=== PATIENT | female | born 1990 | race Caucasian/White ===

== ENCOUNTER 2019-07-06 09:45 | Inpatient (IN) | payer MEDICAID ==
[~2019-07-06] VITALS: Ht 170.2 cm; Wt 73.0 kg
[2019-07-06] MEDS ORDERED: METHYLERGONOVINE 0.2 MG/ML AMP IM PRN (11:05)
[2019-07-06] MEDS ORDERED: PROMETHAZINE 25 MG/ML VIAL IVP PRN (11:05)
[2019-07-06] MEDS ORDERED: NALBUPHINE 10 MG/ML AMP IVP PRN (11:05)
[2019-07-06] MEDS ORDERED: CARBOPROST 250 MCG/ML AMP IM PRN (11:05)
[2019-07-06] MEDS ORDERED: MISOPROSTOL 25 MCG TAB VG SCH (11:10)
[2019-07-06] MEDS ORDERED: MISOPROSTOL 25 MCG TAB ONE (12:27)
[2019-07-06] MEDS ORDERED: AMPICILLIN 1,000 MG VIAL ONE (12:31)
[2019-07-06 13:09] LABS: BASOPHILS # (AUTO) 0.1 K/uL (0.00-0.22); EOSINOPHILS % (AUTO) 0.4 % (0.0-4.0); HEMATOCRIT 36.7 % (36-48); HEMOGLOBIN 12.9 g/dL (12.0-16.0); LYMPHOCYTES # (AUTO) 1.8 K/uL (2.5-16.5); MEAN CORPUSCULAR HEMOGLOBIN 31 pg (27-31); MEAN CORPUSCULAR HGB CONC 35 g/dL (33-37); MEAN CORPUSCULAR VOLUME 89.5 fL (80-94); MONOCYTES # (AUTO) 0.3 K/uL (0.8-1.0); MONOCYTES % (AUTO) 4.3 % (1.7-9.3); NEUTROPHILS # (AUTO) 4.5 K/uL (1.8-7.7); NEUTROPHILS % (AUTO) 67.3 % (42.2-75.2); PLATELET COUNT (AUTO) 177 K/uL (140-450); RED BLOOD CELL COUNT(AUTO) 4.11 MIL/uL (4.20-5.40); RED CELL DISTRIBUTION WIDTH 17.9 % (11.6-13.7); WHITE BLOOD COUNT (AUTO) 6.7 K/uL (4.8-10.8)
[2019-07-06 13:29] LABS: APPEARANCE,URINE CLEAR (CLEAR); BILIRUBIN,URINE NEGATIVE (NEGATIVE); BLOOD, URINE NEGATIVE (NEGATIVE); COLOR,URINE ORANGE (YELLOW); LEUKOCYTE ESTERASE ,URINE NEGATIVE (NEGATIVE); NITRITE, URINE NEGATIVE (NEGATIVE); UGLUCOSE NEGATIVE (NEGATIVE)
[2019-07-06 13:36] LABS: ALBUMIN 3.1 g/dL (3.4-5.0); ANION GAP 17.2 (8-16); CREATININE 0.6 mg/dL (0.6-1.3); POTASSIUM 4.2 mmol/L (3.5-5.1)
[2019-07-06 13:41] LABS: RBC,URINE NONE SEEN /HPF (0-5); WBC,URINE NONE SEEN /HPF (0-5)
[2019-07-06 14:25] LABS: PROTHROMBIN TIME 9.3 secs (10.8-13.4)
[2019-07-06] MEDS ORDERED: NALBUPHINE 10 MG/ML AMP ONE (14:58)
[2019-07-06] MEDS ORDERED: PROMETHAZINE 25 MG/ML VIAL ONE (14:58)
[2019-07-06] MEDS ORDERED: MAG SULF 20 GM/H2O PREMIX DRIP 500 ML IV SCH (17:05)
[2019-07-06] MEDS ORDERED: MAG SULF 2000 MG/WATER PREMIX 100 ML IV SCH (17:30)
[2019-07-06] MEDS ORDERED: ROPIVACAINE 0.2%/NS PREMIX 100 ML EPI ONE (17:35)
[2019-07-06] MEDS ORDERED: hydrALAZINE 20 MG/ML VIAL IVP SCH (18:05)
[2019-07-06] MEDS ORDERED: hydrALAZINE 20 MG/ML VIAL ONE (18:16)
[2019-07-06] MEDS ORDERED: MAG SULF 20 GM/H2O PREMIX DRIP 500 ML IV ONE (18:20)
[2019-07-06] MEDS: LACTATED RINGERS 1,000 ML IV SCH ×2 (18:27→20:50)
[2019-07-07] MEDS ORDERED: OXYTOCIN 20 UNITS in LACTATED RINGERS 1,000 ML IV SCH ×5 (01:30→18:42)
[2019-07-07] MEDS ORDERED: OXYTOCIN 20 UNITS/LR PREMIX 1,000 ML IV ONE ×2 (01:51→18:41)
[2019-07-07] MEDS ORDERED: MAG SULF 20 GM/H2O PREMIX DRIP 500 ML IV ONE ×2 (04:17→20:01)
[2019-07-07] MEDS ORDERED: ROPIVACAINE 0.2%/NS PREMIX 100 ML EPI ONE ×2 (05:27→14:03)
[2019-07-07 07:45] VITALS: BP 156/98
--- NOTE | 2019-07-07 07:57 | NUR ---
PATIENT HAS BEEN SCREENED AND CATEGORIZED LOW NUTRITION RISK. PATIENT WILL BE SEEN WITHIN 7 DAYS OF ADMISSION. 07/12/[address]
[2019-07-07 08:30] VITALS: BP 141/98
[2019-07-07] MEDS ORDERED: hydrALAZINE 20 MG/ML VIAL ONE (12:50)
[2019-07-07 12:57] VITALS: BP 167/104
[2019-07-07] MEDS ORDERED: hydrALAZINE 20 MG/ML VIAL IVP SCH (13:00)
[2019-07-07] MEDS: LACTATED RINGERS 1,000 ML IV SCH (14:32)
[2019-07-07] MEDS ORDERED: BUPRENORPHINE 0.3 MG/ML VIAL IV PRN (17:05)
[2019-07-07] MEDS ORDERED: MAGNESIUM CITRATE 300 ML BTL PO SCH (17:05)
[2019-07-07] MEDS ORDERED: MEASLES, MUMPS, AND RUBELLA 1 VIAL SQVAC PRN (17:05)
[2019-07-07] MEDS ORDERED: OXYTOCIN 10 UNITS in LACTATED RINGERS 1,000 ML IV SCH (17:05)
[2019-07-07] MEDS ORDERED: oxyCODONE/APAP 5/325 MG 1 TAB TAB PO PRN (17:05)
[2019-07-07] MEDS ORDERED: MAG SULF 20 GM/H2O PREMIX DRIP 500 ML IV SCH (17:05)
[2019-07-07] MEDS ORDERED: KETOROLAC 30 MG/ML VIAL IVP PRN (17:05)
[2019-07-07] MEDS ORDERED: TEMAZEPAM 15 MG CAP PO PRN (17:05)
[2019-07-07] MEDS ORDERED: BUPIVACAINE-MPF 0.75% 10 ML VIAL INJ ONE (18:00)
[2019-07-07] MEDS ORDERED: MORPHINE PRES FREE 10 MG/10 ML AMP IV ONE (18:06)
[2019-07-07] MEDS ORDERED: MIDAZOLAM 2 MG/2 ML VIAL ONE (18:06)
[2019-07-07] MEDS ORDERED: ceFAZolin 1,000 MG VIAL IVP ONE (18:15)
[2019-07-07] MEDS ORDERED: ONDANSETRON 4 MG/2 ML VIAL ONE (18:41)
[2019-07-07] MEDS ORDERED: MEPERIDINE 25 MG/ML SYR IVP PRN (18:45)
[2019-07-07] MEDS ORDERED: ONDANSETRON 4 MG/2 ML VIAL IVP PRN ×2 (18:45)
[2019-07-07] MEDS ORDERED: HYDROmorphone 1 MG/ML AMP IVP PRN (18:45)
[2019-07-07] MEDS ORDERED: NALBUPHINE 10 MG/ML AMP IVP PRN (18:45)
[2019-07-07] MEDS ORDERED: NALOXONE 0.4 MG/ML VIAL IVP PRN ×3 (18:45)
[2019-07-07] MEDS ORDERED: diphenhydrAMINE 50 MG/ML VIAL IVP PRN ×2 (18:45)
[2019-07-08] MEDS ORDERED: diphenhydrAMINE 50 MG/ML VIAL ONE ×2 (00:21→00:24)
[2019-07-08] MEDS ORDERED: ceFAZolin 1,000 MG VIAL ONE (02:38)
[2019-07-08 05:34] LABS: HEMATOCRIT 30.5 % (36-48); HEMOGLOBIN 10.7 g/dL (12.0-16.0); MEAN CORPUSCULAR HEMOGLOBIN 31 pg (27-31); MEAN CORPUSCULAR HGB CONC 35 g/dL (33-37); MEAN CORPUSCULAR VOLUME 89.3 fL (80-94); PLATELET COUNT (AUTO) 131 K/uL (140-450); RED BLOOD CELL COUNT(AUTO) 3.42 MIL/uL (4.20-5.40); RED CELL DISTRIBUTION WIDTH 17.5 % (11.6-13.7)
[2019-07-08 07:28] LABS: LYMPHOCYTES % (MANUAL) 5 % (20-46)
[2019-07-08 07:29] LABS: MONOCYTES % (MANUAL) 4 % (5-12)
[2019-07-08] MEDS ORDERED: BLOOD GLUCOSE MONITORING 1 DEV DEV FS SCH (07:30)
[2019-07-08] MEDS ORDERED: metFORMIN 500 MG TAB PO SCH (08:00)
[2019-07-08] MEDS: SODIUM PHOSPHATE 118 ML ENEM RC SCH (09:00)
[2019-07-08] MEDS: BISACODYL 5 MG TABEC PO SCH ×2 (09:00→22:13)
[2019-07-08] MEDS: CALCIUM POLYCARBOPHIL 625 MG TAB PO SCH ×4 (09:00→22:14)
[2019-07-08] MEDS ORDERED: OXYTOCIN 20 UNITS in LACTATED RINGERS 1,000 ML IV SCH (09:10)
[2019-07-08] MEDS: KETOROLAC 30 MG/ML VIAL IM/IVP SCH ×2 (11:06→17:58)
[2019-07-08] MEDS: SIMETHICONE 80 MG TAB.CHEW PO PRN (17:57)
[2019-07-08] MEDS ORDERED: OXYTOCIN 20 UNITS/LR PREMIX 1,000 ML IV ONE (20:09)
[2019-07-08] MEDS: DOCUSATE SOD/SENNA 50/8.6 MG 1 TAB PO SCH (22:14)
[2019-07-08] MEDS: SENNA 8.6 MG TAB PO SCH (22:15)
[2019-07-08] MEDS ORDERED: LABETALOL 200 MG TAB ONE (23:04)
[2019-07-08] MEDS: LABETALOL 200 MG TAB PO SCH (23:05)
[2019-07-09] MEDS: HYDROcodone/APAP 5/325 MG 1 TAB TAB PO PRN ×3 (05:23→17:01)
[2019-07-09] MEDS: BISACODYL 5 MG TABEC PO SCH ×2 (08:44→21:28)
[2019-07-09] MEDS: CALCIUM POLYCARBOPHIL 625 MG TAB PO SCH ×4 (08:44→21:29)
[2019-07-09] MEDS: SIMETHICONE 80 MG TAB.CHEW PO PRN ×2 (08:44→17:01)
[2019-07-09] MEDS: IBUPROFEN 800 MG TAB PO PRN ×2 (08:44→14:35)
[2019-07-09] MEDS: LABETALOL 200 MG TAB PO SCH ×2 (08:45→21:23)
[2019-07-09] MEDS: SODIUM PHOSPHATE 118 ML ENEM RC SCH (10:20)
[2019-07-09] MEDS: SENNA 8.6 MG TAB PO SCH (21:25)
[2019-07-09] MEDS: DOCUSATE SOD/SENNA 50/8.6 MG 1 TAB PO SCH (21:27)
[2019-07-10] MEDS: HYDROcodone/APAP 5/325 MG 1 TAB TAB PO PRN ×3 (01:10→11:59)
[2019-07-10] MEDS: LABETALOL 200 MG TAB PO SCH (08:16)
[2019-07-10] MEDS: SIMETHICONE 80 MG TAB.CHEW PO PRN (08:17)
[2019-07-10] MEDS: BISACODYL 5 MG TABEC PO SCH (09:00)
[2019-07-10] MEDS: CALCIUM POLYCARBOPHIL 625 MG TAB PO SCH ×2 (09:00→11:54)
== END 2019-07-10 14:20 | disposition home or self-care (01) | DRG 540 ==
LOC: MLD 09:45 → OBSVTOIN 11:42 → MLD 11:45 → MFCC 07-09 01:20
PROVIDERS: ADMIT Obstetrics & Gynecology; ATTEND Obstetrics & Gynecology
PROC: 3E0134Z Introduction of Serum, Toxoid and Vaccine into Subcutaneous Tissue, Percutaneous Approach (ICD-10-PCS; 2019-07-07)
PROC: 10D00Z1 Extraction of Products of Conception, Low, Open Approach (ICD-10-PCS; principal; 2019-07-07 17:30)
PROC: 3E0234Z Introduction of Serum, Toxoid and Vaccine into Muscle, Percutaneous Approach (ICD-10-PCS; 2019-07-10)
DX: O14.14 Severe pre-eclampsia complicating childbirth (principal); I16.9 Hypertensive crisis, unspecified; O69.81X0 Labor and delivery complicated by cord around neck, without compression, not applicable or unspecified; O62.0 Primary inadequate contractions; Z37.0 Single live birth; Z3A.38 38 weeks gestation of pregnancy; Z23 Encounter for immunization
CPT/HCPCS: G0378 ×2; 36415; 80053; 81001; 82948; 83735; 85025; 85384; 85610; 85730; 86592; 86886; 86900; 86901; 90715; J0290; J0360; J0690; J1200; J1885; J2250; J2270; J2300; J2405; J2550; J2590; J2795; J3475; J3490; J7060; J7120

== ENCOUNTER 2022-09-19 14:43 | Emergency (ER) | payer MEDICAID ==
[~2022-09-19] VITALS: Ht 170.2 cm; Wt 70.5 kg
[2022-09-19 14:56] VITALS: BP 153/92
--- NOTE | 2022-09-19 15:03 | NUR ---
PT AMB TO BED 10.
--- NOTE | 2022-09-19 15:04 | NUR ---
32/F C/O DIZZINESS AND HEADACHE ACCOMPANIED BY NAUSEA X 1 WK. TACHY OF 137 AT TRIAGE. AAO4, AMBULATORY, VITALS STABLE, ON ROOM AIR. ON MONITOR, ON GOWN. PMH: DM
--- NOTE | 2022-09-19 15:25 | NUR ---
IV ESTABLISHED TO LEFT AC WITH 20G. BLOOD DRAWN, URINE COLLECTED.
[2022-09-19 15:58] LABS: BASOPHILS % (AUTO) 0.6 % (0.0-2.0); EOSINOPHILS % (AUTO) 0.3 % (0.0-4.0); HEMATOCRIT 34.1 % (36-48); LYMPHOCYTES # (AUTO) 0.4 K/uL (2.5-16.5); LYMPHOCYTES % (AUTO) 9.4 % (20.5-51.1); MEAN CORPUSCULAR HEMOGLOBIN 27 pg (27-31); MEAN CORPUSCULAR HGB CONC 35 g/dL (33-37); MEAN CORPUSCULAR VOLUME 76.6 fL (80-94); MONOCYTES # (AUTO) 0.4 K/uL (0.8-1.0); MONOCYTES % (AUTO) 8.1 % (1.7-9.3); NEUTROPHILS # (AUTO) 3.6 K/uL (1.8-7.7); NEUTROPHILS % (AUTO) 81.6 % (42.2-75.2); PLATELET COUNT (AUTO) 155 K/uL (140-450); RED BLOOD CELL COUNT(AUTO) 4.45 MIL/uL (4.20-5.40); RED CELL DISTRIBUTION WIDTH 17.8 % (11.6-13.7); WHITE BLOOD COUNT (AUTO) 4.4 K/uL (4.8-10.8)
[2022-09-19 16:05] LABS: APPEARANCE,URINE CLEAR (CLEAR); BILIRUBIN,URINE 1+ (NEGATIVE); BLOOD, URINE 1+ (NEGATIVE); COLOR,URINE YELLOW (YELLOW); LEUKOCYTE ESTERASE ,URINE NEGATIVE (NEGATIVE); NITRITE, URINE NEGATIVE (NEGATIVE); UGLUCOSE 3+ (NEGATIVE)
[2022-09-19 16:16] LABS: RBC,URINE 11-20 (MOD) /HPF (0-5); WBC,URINE 0-5 /HPF (0-5)
[2022-09-19 16:17] LABS: OTHER CASTS, URINE None Seen /LPF (None Seen)
[2022-09-19 16:18] LABS: ALBUMIN 4.5 g/dL (3.4-5.0); CARBON DIOXIDE 25.8 mmol/L (21-32); CREATININE 0.5 mg/dL (0.6-1.3); POTASSIUM 3.8 mmol/L (3.5-5.1); TOTAL BILIRUBIN 2.8 mg/dL (0.0-1.0)
[2022-09-19 16:18] LABS: YEAST,URINE Moderate /HPF (None Seen)
[2022-09-19] MEDS ORDERED: KETOROLAC 30 MG/ML VIAL IVP ONE (16:25)
[2022-09-19] MEDS ORDERED: NACL 0.9% 1,000 ML IV ONE ×2 (16:25→18:05)
[2022-09-19] MEDS ORDERED: METOCLOPRAMIDE 10 MG/2 ML INJ VIAL IVP ONE (16:25)
[2022-09-19 16:39] LABS: FREE T4 (FREE THYROXINE) 1.19 ng/dL (0.76-1.46); THYROID STIMULATING HORMONE 0.94 uIU/mL (0.34-3.74)
[2022-09-19] MEDS ORDERED: INSULIN NPH HUM/REG INSULIN HM 100 UNIT/ML 10 ML VIAL SUBQ ONE (18:00)
[2022-09-19] MEDS ORDERED: METF-924 PO (18:04)
[2022-09-19] MEDS ORDERED: HYDR-3293 PO (18:04)
[2022-09-19 19:39] VITALS: BP 138/88
--- NOTE | 2022-09-19 19:41 | NUR ---
Patient discharged with v/s stable. Written and verbal after care instructions given and explained. Patient alert, oriented and verbalized understanding of instructions. Ambulatory with steady gait. All questions addressed prior to discharge. ID band removed. Patient advised to follow up with PMD. Rx of LOSARTAN, METFORMIN given. Patient educated on indication of medication including possible reaction and side effects. Opportunity to ask questions provided and answered.
== END 2022-09-19 19:41 | disposition home or self-care (01) ==
LOC: MED 14:43
DX: E86.0 Dehydration (principal); Z20.822 Contact with and (suspected) exposure to COVID-19; E11.65 Type 2 diabetes mellitus with hyperglycemia; I10 Essential (primary) hypertension; Z79.84 Long term (current) use of oral hypoglycemic drugs; Z79.899 Other long term (current) drug therapy
CPT/HCPCS: 36415; 80053; 81001; 81025; 82803; 82948; 83605; 83690; 83930; 84439; 84443; 85025; 87426; 87804; 93005; 96361; 96372; 96374; 96375; 99284; J1815; J1885; J2765; J7030